=== PATIENT | female | born 1995 | race Caucasian/White ===

== ENCOUNTER 2017-09-26 16:29 | Emergency (ER) | payer OTHER ==
[~2017-09-26] VITALS: Ht 165.1 cm; Wt 66.0 kg
[2017-09-26 16:34] VITALS: TEMP 36.5; Ht 165.1 cm; Wt 66.0 kg
[2017-09-26] MEDS ORDERED: FAMOTIDINE 20MG/5ML IV PUSH IV SCH (16:40)
[2017-09-26] MEDS ORDERED: FAMOTIDINE IV INJ 20 MG in DEXTROSE 5% 100ML 100 ML IV STA (16:40)
[2017-09-26] MEDS ORDERED: DiphenhydrAMINE HCL 50 MG/ML VIAL IV STA (16:40)
[2017-09-26] MEDS ORDERED: DEXAMETHASONE **PF** INJ 10 MG/ML VIAL IV STA (16:40)
[2017-09-26 16:47] VITALS: O2SAT 99
[2017-09-26] MEDS ORDERED: ALBU18002 PO (17:52)
[2017-09-26] MEDS ORDERED: CETI1SYP22 PO (17:52)
[2017-09-26] MEDS ORDERED: PRED20TA2 PO (18:40)
--- NOTE | 2017-09-26 18:41 | EMERGENCY ROOM VISIT NOTE ---
History First contact with patient: 16:36 Chief Complaint: ALLERGIC REACTION Stated Complaint: ALLERGIC REACTION-THROAT CLOSING Nursing Triage Summary: Pt states she feels like she is having an allergic reaction, states she was eating a turkey sandwich and stated to feel like her troat was closing, skin w/d/i, no hives noted, small scabbed areas from eczema per pt, lungs CTA, pulsox 99% RA. History of Present Illness The patient is a 22 year old female who presents to the Emergency Room via private vehicle with complaints of "allergic reaction-throat closing". The patient states that she has a history of Eczema, asthma, and allergic reactions. She states that earlier today she was eating a turkey sandwich and believes that the spices that were on the same which are causing her to have her reaction. She feels as though her throat is closing. She has felt like this before in tried her inhaler without success. She has not used her EpiPen at this point. She notes no pain just a feeling as if her throat is closing. She states that when she has this occur in the past she typically will have to take steroids. She denies chance of . Review of Systems A complete 6-point Review of Systems was discussed with the patient, with pertinent positives and negatives listed in the History of Present Illness. All remaining Review of Systems questions can be considered negative unless otherwise specified. Past Medical/Surgical History Asthma, allergic reactions, eczema Family History No pertinent Social History Pt. is a [employer] student and lives locally Current/Historical Medications Scheduled Albuterol Sulfate (Proair Respiclick), 2 PUFFS PO Q4 Prednisone (Prednisone Tab), 0 PO DAILY Miscellaneous Medications Cetirizine Hcl (Zyrtec Childrens Allergy), 10 ML PO Physical Exam Vital Signs Date Time Temp Pulse Resp B/P (MAP) Pulse Ox O2 Delivery O2 Flow Rate FiO2 09/26/17 18:53 106 19 137/74 95 09/26/17 17:30 93 09/26/17 17:13 86 18 124/67 98 Room Air 09/26/17 16:47 99 Room Air 09/26/17 16:44 85 20 99 Room Air 09/26/17 16:44 99 Room Air 09/26/17 16:34 36.5 118 20 115/79 99 Physical Exam VITAL SIGNS - Vital signs and nursing notes were reviewed. Stable. Tachycardic. GENERAL -22-year-old female appearing her stated age who is in no acute distress and she is nontoxic on exam. Communicates well with provider and answers questions appropriately. SKIN - patient does have some erythema to her skin which she notes his eczema. No evidence of hives. HEAD - NC/AT. EYES - Sclera anicteric. EARS - No deformities of external structures noted on gross examination bilaterally. NOSE - Midline and without cyanosis. No epistaxis or purulent drainage noted. MOUTH/OROPHARYNX - Without perioral cyanosis. The pharynx is patent. NECK - Neck with FROM. Supple to palpation. LUNGS - Chest wall symmetric without accessory muscle use, intercostals retractions, or central cyanosis. Normal vesicular breath sounds CTA B/L. No wheezes, rales, or rhonchi appreciated. CARDIAC - RRR with S1/S2. No murmur, rubs, or gallops appreciated. Medical Decision & Procedures Medications Administered Medications (Trade) Dose Ordered Sig/Rosanna Route Start Time Stop Time Status Last Admin Dose Admin Dexamethasone Sodium Phosphate (Dexamethasone Inj Pf) 10 mg NOW STAT IV 09/26/17 16:40 09/26/17 16:44 DC 09/26/17 16:52 10 MG Diphenhydramine HCl (Benadryl Inj) 25 mg NOW STAT IV 09/26/17 16:40 09/26/17 16:43 DC 09/26/17 16:53 25 MG Famotidine (Pepcid 20mg Iv Push) 20 mg 1640 IV 09/26/17 16:40 09/26/17 18:00 DC 09/26/17 17:09 20 MG Medical Decision Patient was seen and evaluated as above. She presents to us today status post eating a food that she may be allergic to, and now has a reaction which she is experiencing the past. She typically experiences relief with steroids. Because of her sensations of the throat is closing I we'll initiate IV access, and also give her steroids via Decadron 10 mg IV, as well as Pepcid 20 mg IV, followed by Benadryl 25 mg IV. She was reevaluated and feeling much better. She appears stable for outpatient management. She was observed here for quite some time. She'll be given a steroid at home, and he has an EpiPen. She will also taking [id number] medication such as Zantac and Benadryl. She was educated upon management, educated upon worrisome symptoms which to return, had questions prior to discharge, and was discharged home in good condition. She is to follow with [facility]. In evaluation treatment this patient the following differential diagnoses were entertained: Anaphylaxis, among others. Impression Primary Impression: Allergic reaction Departure Information Dispostion Home / Self-Care Condition GOOD Prescriptions Prednisone (Prednisone Tab) 20 Mg Tab 0 PO DAILY, #7 TAB 2 TABS DAILY FOR 2 DAYS, THEN 1 TAB DAILY FOR 2 DAYS, THEN 1/2 TAB DAILY FOR 2 DAYS. Prov: Luis Gastelum PA-C 09/26/17 Referrals No Doctor, Assigned (PCP) Patient Instructions My [facility] Additional Instructions You have been treated in the Emergency Department for an Allergic Reaction. You have been treated and monitored in the Emergency Department appropriately. You should take Benadryl (diphenhydramine) 25 mg orally every 6 hours for the next 7 days. This medication is [id number] and you will NOT need a prescription to purchase this at your local pharmacy. You should continue taking the Benadryl for the COMPLETION of the 5-7 days. This is to prevent a rebound allergic reaction in the event that allergens are still present in your system. You should take Zantac (ranitidine) 75 mg orally once daily for the next 7 days. This medication is [id number] and you will NOT need a prescription to purchase this at your local pharmacy. You should continue taking the Zantac for the COMPLETION of the 7 days. This is to prevent a rebound allergic reaction in the event that allergens are still present in your system. You have been prescribed Prednisone. This is an anti-inflammatory medicine to be used to help minimize your symptoms. You should take the COMPLETE course of the medication. You have been previously prescribed an EpiPen to be used in the case of an Emergency. Please read the packet you have been given and ask your pharmacist for instructions on proper administration. If you begin to experience the symptoms that brought you to the Emergency Department today, you should give yourself the injection and then report IMMEDIATELY to the Emergency Department for further evaluation and treatment. As with every Emergency Department visit, you should follow-up with your primary care provider in 2-3 days for reevaluation. Return to the Emergency Department if your current symptoms worsen despite treatment course outlined above, or if you develop any of the following symptoms : wheezing, tongue or face swelling, tightness in your throat, shortness of breath, or fainting.
[2017-09-26 18:53] VITALS: BP 137/74; PULSE 106; O2SAT 95
== END 2017-09-26 18:54 | disposition home or self-care (01) ==
LOC: C.EDB 16:30 → C.EDD 18:54
DX: T78.40XA Allergy, unspecified, initial encounter (principal); X58.XXXA Exposure to other specified factors, initial encounter; J45.909 Unspecified asthma, uncomplicated